=== PATIENT | male | born 1950 | race Caucasian/White ===

== ENCOUNTER → 2023-08-06 07:05 | Outpatient (REF) | payer MEDICARE, OTHER, SELFPAY | LOC: PAVMRI 07:05 | PROVIDERS: ATTENDING PHYSICIAN Physical Medicine & Rehabilitation; FAMILY PHYSICIAN Family Medicine | DX: M54.12 Radiculopathy, cervical region (principal) | CPT/HCPCS: 72141 ==

== ENCOUNTER 2023-10-31 09:45 | Emergency (ER) | payer MEDICARE, OTHER, SELFPAY ==
[2023-10-31 09:46] VITALS: BP 130/77
[2023-10-31 10:15] LABS: % Basophils 0.6 % (0-2); % Eosinophils 2.6 % (0-6); % Lymphocytes 44.5 % (20.5-51.1); % Monocytes 5.2 % (1.7-9.3); % Neutrophils 47.1 % (42.2-75.2); Absolute Lymphocytes 0.7 10^3/uL (1.2-3.4); Absolute Monocytes 0.1 10^3/uL (0.1-0.6); Hematocrit 30.9 % (39.0-52.0); Hemoglobin 10.1 g/dL (13.0-18.0); Mean Corp Hgb Conc. 32.7 g/dL (33.0-37.0); Mean Corpuscular Volume 79.6 fL (80.0-94.0); Nucleated Red Blood Cells % 0 % (-); Platelet Count 116 10^3/uL (130-400); Red Blood Cell Count 3.88 10^6/uL (4.70-6.10); Red Cell Dist. Width 14.6 % (11.5-14.5)
[2023-10-31 10:23] LABS: ALT (SGPT) 46 U/L (0-50); AST (SGOT) 38 U/L (17-59); Albumin 4.2 g/dl (3.5-5.0); Alkaline Phosphatase 105 U/L (38-126); Blood Urea Nitrogen 30 mg/dl (9-20); Calcium 10.2 mg/dl (8.4-10.2); Carbon Dioxide 26 mmol/L (22-30); Chloride 101 mmol/L (98-107); Glucose 176 mg/dl (70-99); Potassium 4.3 mmol/L (3.5-5.1); Sodium 137 mmol/L (135-145); Total Bilirubin 0.6 mg/dl (0.2-1.3); Total Protein 7.4 g/dl (6.3-8.2); eGFR > 60.00
[2023-10-31 10:24] LABS: White Blood Cell Count 1.6 10^3/uL (4.8-10.8)
[2023-10-31 10:31] VITALS: BP 142/75
[2023-10-31 10:45] LABS: Absolute Neutrophils 0.7 10^3/uL (1.4-6.5)
--- NOTE | 2023-10-31 10:58 | ED.GENMED ---
History of Present Illness
General
Chief Complaint: Cold/Flu/URI Symptoms
Source: patient
Exam Limitations: none
Time Seen by Provider: 10/31/23 10:34
Nursing documentation reviewed up to this point in time: agreed with
History of Present Illness
History of Present Illness:
73-year-old male presents emergency room complaining of a cough, chills chest pressure for the past 3 weeks. He saw primary care and was prescribed Z-David, had a chest x-ray and blood work that showed neutropenia and leukopenia.
Past History
Past History
ED Past Medical History: HTN, NIDDM and Other
ED Past Surgical History: Other
Social History
Tobacco: Non-smoker
Alcohol: Occasional
Drug: None
Personal:
Living: with family
Employment: Other
Family History
Family History: Diabetes
Review of Systems
Review of Systems
Allergies reviewed?: Yes
All Other Systems: Not applicable
Constitutional: Reports chills
EENT: Reports no symptoms
Respiratory: Reports cough and trouble breathing
Cardiac: Reports no symptoms
ABD/GI: Reports no symptoms
: Reports no symptoms
Musculoskeletal: Reports no symptoms
Skin: Reports no symptoms
Neurological: Reports no symptoms
Endocrine: Reports no symptoms
Hematologic/Lymphatic: Reports no symptoms
Psychiatric: Reports no symptoms
Phy Exam
Physical Exam
Physical Exam:
Physical Exam
General: Afebrile
Neck: supple. no meningeal signs. normal posterior pharynx
Heart: s1/s2 regular rate and rhythm, no murmur. equal radial
pulses.
HEENT: Pupils equal round reactive to light, EOMI
Lungs: no acute respiratory distress. clear bilaterally, cough
Abdomen: normal bowel sounds. not tender. no CVAT
Neuro: alert and oriented. no focal neurological deficits cranial nerves II through XII intact
Skin: no rash
Psychiatric: well kept. interactive and cooperative
Extremities: no edema. no calf tenderness. negative homans. good distal pulses
Course
Orders/Labs/Results
Orders:
Orders
10/31/23 09:50
Electrocardiogram (*1) Urgent
Reason for Study: Chest Pain
EKG- Treatment ONCE
10/31/23 09:56
CMP [Comprehensive Metabolic Panel] Urgent
Complete Blood Count/With Diff Urgent
10/31/23 10:56
CR Chest - 2 Views Urgent
Comment:
Reason For Exam: cough, short of breath
10/31/23 11:07
COVID-19 Antigen Urgent
Source: Nasal Swab
Influenza A+B Rapid Molecular Urgent
[facility] Source: Nasal Swab
Specimen Description:
10/31/23 12:15
Ipratropium/Albuterol Sulfate [Duoneb] 3 ml INH R NOW ONE
Abnormal Lab Results
10/31/23
09:56
WBC 1.6 L* 10^3/uL
(4.8-10.8)
RBC 3.88 L 10^6/uL
(4.70-6.10)
Hgb 10.1 L g/dL
(13.0-18.0)
Hct 30.9 L %
(39.0-52.0)
MCV 79.6 L fL
(80.0-94.0)
MCH 26.0 L pg
(27.0-31.0)
MCHC 32.7 L g/dL
(33.0-37.0)
RDW 14.6 H %
(11.5-14.5)
Plt Count 116 L 10^3/uL
(130-400)
Absolute Neuts (auto) 0.7 L* 10^3/uL
(1.4-6.5)
Absolute Lymphs (auto) 0.7 L 10^3/uL
(1.2-3.4)
BUN 30 H mg/dl
(9-20)
Glucose 176 H mg/dl
(70-99)
10/31/23 09:56
10/31/23 09:56
Vital Signs
Initial and Last Documented VS:
Initial Vital Signs
Temp Pulse Resp BP Pulse Ox
97.6 F 85 16 130/77 96
10/31/23 09:46 10/31/23 09:46 10/31/23 09:46 10/31/23 09:46 10/31/23 09:46
Last Documented Vital Signs
Temp Pulse Resp BP Pulse Ox
97.6 F 81 18 122/56 97
10/31/23 09:46 10/31/23 14:03 10/31/23 14:03 10/31/23 13:00 10/31/23 15:12
MDM/Problems Addressed
Differential Diagnosis Includes:
Pneumonia, neutropenia
MDM/Problems Addressed:
73-year-old male with pancytopenia, no signs of pneumonia, no fever. Discussed with Dr. Cornell, who recommends patient follow-up with primary care for repeat blood count in 1 week, and return precautions if he develops a fever.
Chronic conditions affecting care: HTN
Acute Exacerbation and/or Progression of Chronic Illness: HTN
*Radiology
Radiology exam reviewed: preliminary read by ED provider (Chest x-ray no acute findings)
*Pulse Oximetry
Patient hypoxic: no
*EKG
Interpreted by ED Provider?: NA
*Photographic Press Screwmaker Interpretation
Rate: Photographic Press Screwmaker- N/A
*Critical Care Note
Total Time (30-74mins, 75-104mins- exclusive of procedures): Not Applicable
Data Reviewed
Review of Other/Old Records Reveals: Labs (Prior white blood cell count 2.8 in 2023)
Source: records
Patient Management
Social determinants of health affecting care: Living situation
Discussion with other providers: Oil Spraying Machine Operator (Dr. Cornell, hematology)
Escalation/DeEscalation of care consider admission/obs:
Admit not indicated
ED Attending Note
-
Portions of this chart may have been created with voice recognition software.� Occasional wrong word or��sound alike� substitutions may have occurred due to the inherent limitations of voice recognition software.
Discharge Plan
Departure
Patient Disposition: Home (Routine Discharge)
Date of Disposition: 10/31/23
Time of Disposition: 15:12
Patient with high blood pressure during this ER visit?: Yes
Condition: Good
Discharge Problem:
Acute bronchitis, Neutropenia
Instructions: Neutropenia, Acute Bronchitis, Adult (DC), BLOOD PRESSURE
Prescriptions:
New
albuterol sulfate [ProAir HFA] 90 mcg/actuation HFA aerosol inhaler
1 puff inhalation Q4HPRN PRN (Reason: shortness of breath) Qty: 8.5 0RF
guaifenesin [Mucinex] 600 mg tablet extended release 12hr
600 mg PO BID Qty: 14 0RF
No Action
metformin 1,000 MG tablet
1,000 mg PO BID@0800,1700
montelukast 10 MG tablet
10 mg PO QPM
lisinopril 2.5 MG tablet
2.5 mg PO QPM
aspirin [Aspir-Low] 81 MG tablet,delayed release (DR/EC)
81 mg PO DAILY
repaglinide 0.5 MG tablet
0.5 mg PO DAILY AT 0700
prednisone 10 MG tablet
10 mg PO .TAPER Qty: 45 0RF
Rx Instructions:
Take 50mg daily x3days, 40mg daily x3days,
30mg daily x3days, 20mg daily x3days,
10mg daily x3days
promethazine-codeine 5 ML syrup
5 ml PO Q4HPRN PRN (Reason: cough) Qty: 100 0RF
doxycycline hyclate 100 mg tablet
100 mg PO BID 7 Days Qty: 13 0RF
promethazine-codeine 6.25-10 mg/5 mL syrup
5 ml PO [id number] PRN (Reason: cough) Qty: 35 0RF
codeine-guaifenesin 6.3-100 mg/5 mL liquid
8 ml PO [id number] PRN (Reason: cough) Qty: 65 0RF
ondansetron 4 mg tablet,disintegrating
4 mg PO Q8H PRN (Reason: nausea and vomiting) 4 Days Qty: 10 0RF
Referrals:
Oneil Sanz MD [Family Provider] -
Raheem Cornell DO [Active] - Call in 1-3 days for appt
Interventions
Interventions:
*Risk Screen - Suicide Last Done: 10/31/23 11:04
*General Assessment Last Done: 10/31/23 09:46
*Neglect/Abuse Screening Last Done: 10/31/23 11:04
*ED COVID-19 Vaccine History Last Done: 10/31/23 09:46
*Nursing Disposition Last Done: 10/31/23 15:25
ED- Pulmonary Assessment Last Done: 10/31/23 12:32
Discharge Date and Time
Discharge Date/Time: 10/31/23 15:25
Print Language: MALTESE
[2023-10-31 11:00] VITALS: BP 124/72
[2023-10-31 11:03] VITALS: BMI 23.9
[2023-10-31 11:36] LABS: COVID-19 Antigen Negative (Negative)
[2023-10-31] MEDS: DUONEB 3 ML INH (12:20)
[2023-10-31 12:35] VITALS: BP 137/61
[2023-10-31 13:00] VITALS: BP 122/56
== END 2023-10-31 15:25 | disposition home or self-care (01) ==
LOC: EMR 09:45
PROVIDERS: Emergency Medicine; EMERGENCY PHYSICIAN Emergency Medicine; FAMILY PHYSICIAN Family Medicine
DX: J20.9 Acute bronchitis, unspecified (principal); D70.9 Neutropenia, unspecified; Z11.52 Encounter for screening for COVID-19; I10 Essential (primary) hypertension; E11.36 Type 2 diabetes mellitus with diabetic cataract; M19.90 Unspecified osteoarthritis, unspecified site; Z79.84 Long term (current) use of oral hypoglycemic drugs; Z85.46 Personal history of malignant neoplasm of prostate; Z87.01 Personal history of pneumonia (recurrent); Z88.1 Allergy status to other antibiotic agents
CPT/HCPCS: 99283; 94640; 71046; 80053; 85025; 87502; 87811; 93005

== ENCOUNTER 2024-09-20 13:45 | Emergency (ER) | payer SELFPAY ==
[2024-09-20 14:03] VITALS: BP 160/79
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
[2024-09-20] MEDS: TORADOL 30 MG IM (17:32)
[2024-09-20] MEDS: VALIUM 2 MG PO (17:33)
[2024-09-20 17:34] VITALS: BP 154/80
== END 2024-09-20 18:08 | disposition home or self-care (01) ==
LOC: EMR 13:45
PROVIDERS: EMERGENCY PHYSICIAN Student in an Organized Health Care Education/Training Program; FAMILY PHYSICIAN Family Medicine
DX: S39.012A Strain of muscle, fascia and tendon of lower back, initial encounter (principal); S16.1XXA Strain of muscle, fascia and tendon at neck level, initial encounter; S80.212A Abrasion, left knee, initial encounter; V59.50XA Passenger in pick-up truck or van injured in collision with unspecified motor vehicles in traffic accident, initial encounter; I10 Essential (primary) hypertension; E11.9 Type 2 diabetes mellitus without complications; G89.29 Other chronic pain; Z85.46 Personal history of malignant neoplasm of prostate
CPT/HCPCS: 96372; 99284; 71046; 93005

== ENCOUNTER → 2025-02-10 13:51 | Outpatient (REF) | payer OTHER, MEDICARE, SELFPAY | LOC: HWRCS 13:51 | PROVIDERS: ATTENDING PHYSICIAN Student in an Organized Health Care Education/Training Program; FAMILY PHYSICIAN Family Medicine | DX: R06.02 Shortness of breath (principal) | CPT/HCPCS: 93306 ==